=== PATIENT | male | born 1985 | race Caucasian/White ===

== ENCOUNTER 2023-06-07 05:50 | Day surgery (SDC) | payer OTHER ==
[2023-05-29 16:25] VITALS: BP 130/83
[~2023-06-07] VITALS: Ht 185.4 cm; Wt 90.9 kg
[~2023-06-07 05:50] MED LIST: PRILOSEC OTC20 MG PO; SERTRALINE HCL25 MG PO
[2023-06-07 06:11] VITALS: BP 152/85
--- NOTE | 2023-06-07 07:51 | NUR ---
PT EXPRESSED NERVOUSNESS. TALKED OF SOURCE OF ANXIETY. INDICATED IT WAS "THE WHOLE THING." EXERCISED MINISTRY OF PRESENCE. PT CONSENTED TO PRAYER. PRAYED FOR SUCCESSFUL PROCEDURE AND ABIDING PEACE.
--- NOTE | 2023-06-07 08:36 | NUR ---
06/07/23 0836 Sylwia Phoenix 0822- PT ARRIVES TO PACU SLEEPING WITH OPA IN PLACE, O2 MASK AT 6L. PT REQUIRING JAWLIFT TO ASSIST AIRWAY. ALL MONITORS APPLIED. ABD SOFT, NON DISTENDED, SMALL AMOUNT OF BLOOD ON TROCAR SITES WITH STERI STRIPS IN PLACE X 4. 0833- PT WAKES TO LOUD VERBAL STIMULUS, OPA REMOVED. PT MOVED TO ROOM AIR. PT DENIES NAUSEA OR PAIN. STATES "I'M JUST HIGH". PT ENCOURAGED TO REST AND REORIENTED TO PROCEDURE COMPLETE. NO OTHER NEEDS AT THIS TIME.
[2023-06-07] MEDS ORDERED: ACETAMINOPHEN500 MG PO (08:38)
[2023-06-07] MEDS ORDERED: IBUPROFEN600 MG PO (08:38)
[2023-06-07] MEDS ORDERED: OXYCODON-ACETA1 EAC2 PO (08:38)
[2023-06-07 08:50] VITALS: BP 135/84
--- NOTE | 2023-06-07 08:53 | NUR ---
JOSSELINE 0850: PT IS BACK TO DS FROM PACU. IS AT THE BEDSIDE. CALL LIGHT IS WITHIN REACH. CALL LIGHT WITHIN REACH. WATER AND COFFEE ON BEDSIDE TABLE. PT WOULD LIKE SOME JELLO. NO ADDITIONAL NEEDS OR CONCERNS AT THIS TIME. DC CRITERIA REVIEWED WITH PT AND .
[2023-06-07 09:55] VITALS: BP 131/80
--- NOTE | 2023-06-07 10:01 | NUR ---
PATIENT LAYING IN BED. RATES PAIN 11/14. REFILLED PATIENT'S WATER. IN ROOM. CALL LIGHT WITHIN REACH.
--- NOTE | 2023-06-07 10:38 | OR ---
[facility] [address] [place], [place] [address] Signed DATE OF OPERATION: 06/07/2023 SURGEON: Dianne Moctezuma MD PREOPERATIVE DIAGNOSIS: Chronic acalculous cholecystitis. POSTOPERATIVE DIAGNOSIS: Chronic acalculous cholecystitis. PROCEDURE: Laparoscopic cholecystectomy with intraoperative cholangiogram and surgeon-directed fluoroscopy. ANESTHESIA: General endotracheal, Dianne Rizvi CRNA and local 10 mL of 0.25% Marcaine with epinephrine. INDICATION: This 37-year-old white man is a patient of Dr. Giuseppe Norton. He has had symptoms of right subcostal and epigastric pain particularly worse following meals. Typical biliary symptoms were noted. A gallbladder ultrasound was found to have no stones. A CCK-HIDA test was found to be 88% ejection fraction (normal), but with reproduction of his symptoms. He has had no response to empiric treatment or PPI medication and has no other complaints currently. He is admitted at this time to undergo cholecystectomy on the presumption of acalculous cholecystitis, mindful of the normal studies that have thus been performed. The risk of bleeding, infection, bile duct injury and other unforeseen complications and most importantly failure to cure his symptoms was reviewed in detail. He understands and wished to proceed. FINDINGS: The gallbladder was mildly chronically inflamed. The liver was entirely normal. Once excised, the gallbladder did show adenomyosis of the mucosa. The cholangiogram was normal. Examination of the right colon and transverse colon appeared normal. The appendix was identified, although elongated, appeared normal and soft. There were no other findings of concern. DESCRIPTION OF PROCEDURE: The patient was brought to the operating room, given a general endotracheal anesthetic. Preoperative antibiotic Ancef was given. Sequential compression device stockings were Electronically Signed By: DIANNE MOCTEZUMA MD 06/07/23 1038 PATIENT NAME: LUIZA SERRANO OPERATIVE REPORT DATE OF : [birth year] REPORT #: [id number] PHYSICIAN: DIANNE MOCTEZUMA MD PCP: GIUSEPPE NORTON MD REPORT IS CONFIDENTIAL AND NOT TO BE RELEASED WITHOUT AUTHORIZATION [facility] [address] [place], [place] [address] Signed used and heparin subcutaneously administered. The abdomen was prepared with a chlorhexidine solution and draped sterilely after clipping. Infraumbilical incision was made and using an open Araceli cannula technique, the abdomen entered and pneumoperitoneum achieved to a level of 14 mmHg of carbon dioxide gas. Intra-abdominal inspection showed no sign of ascites or carcinomatosis. The gallbladder was obscured from view. The liver was normal. Three additional trocars were placed in usual configuration in the subxiphoid, right midclavicular and right anterior axillary line. The gallbladder was identified and small to moderate in size. It was elevated cephalad. Close inspection did not show any sign of neoplastic change or adhesions to it. It was retracted laterally and using blunt and electrocautery dissection, the triangle of Calot was dissected free identifying a small cystic duct. The cystic duct was clipped at the gallbladder cystic duct junction and a transverse choledochotomy was made in the cystic duct. Egress of clear bile was noted. Using an Berman type cholangiocatheter, intraoperative cholangiography was undertaken showing free flow of contrast in the biliary tree with prompt emptying into the duodenum. Morphine was administered to allow for retrograde filling of the more proximal biliary tree which was also normal. The catheter was removed and the cystic duct was triply clipped and divided. The gallbladder was then dissected free in a retrograde fashion using electrocautery. The gallbladder was extracted through the infraumbilical port site without problem, opening on the back table and found to have no sign of stones, but did show adenomyosis of the mucosa. Irrigation was undertaken in the subhepatic space. Additional cautery was applied as necessary for good hemostasis. Irrigation was undertaken. Excess irrigation fluid suctioned free. The trocars were removed under direct visualization. There was a small amount of bleeding at the inferior right-sided trocar which was secured with electrocautery. Plans were then made for closure. The infraumbilical incision was reapproximated with interrupted 0 Vicryl suture. 10 mL of 0.25% Marcaine with epinephrine was injected locally. The skin was closed with interrupted 3-0 Vicryl. Steri-Strips were applied. He was ultimately extubated and transferred to the recovery room in good condition having suffered no complication. Blood loss was less than 10 mL. Sponge, needle and instrument counts were reported as correct x3. Dianne Moctezuma MD /CUATEL /[id number] Electronically Signed By: DIANNE MOCTEZUMA MD 06/07/23 1038 PATIENT NAME: LUIZA SERRANO OPERATIVE REPORT DATE OF : [birth year] REPORT #: [id number] PHYSICIAN: DIANNE MOCTEZUMA MD PCP: GIUSEPPE NORTON MD REPORT IS CONFIDENTIAL AND NOT TO BE RELEASED WITHOUT AUTHORIZATION [facility] [address] [place], [place] [address] Signed cc: Giuseppe Norton MD Copies: GIUSEPPE NORTON MD ~ Electronically Signed By: DIANNE MOCTEZUMA MD 06/07/23 1038 PATIENT NAME: LUIZA SERRANO PERRI OPERATIVE REPORT DATE OF : [birth year] REPORT #: [id number] PHYSICIAN: DIANNE MOCTEZUMA MD PCP: GIUSEPPE NORTON MD REPORT IS CONFIDENTIAL AND NOT TO BE RELEASED WITHOUT AUTHORIZATION
--- NOTE | 2023-06-07 10:54 | NUR ---
JOSSELINE 1046: PT TURNS HIS CALL LIGHT ON. HE WOULD LIKE TO GET UP TO USE THE RESTROOM. HE IS ABLE TO AMBULATE INDEPENDENTLY WITHOUT ISSUES. HE IS ABLE TO VOID 525MLS OF DARKISH YELLOW URINE. HE AMBULATES BACK TO HIS ROOM. HE IS INDICATES THAT HE WOULD LIKE TO START GETTING READY TO GO HOME. HE IS EDUCATED ON HOW TO BEST DRESS HIMSELF AND TO OPEN HIS CURTAIN WHEN HE IS READY.
[2023-06-07 10:58] VITALS: BP 139/81
--- NOTE | 2023-06-07 11:51 | NUR ---
JOSSELINE 1055: PT AND ARE GIVEN VERBAL AND WRITTEN DC INSTRUCTIONS. THEY BOTH VERBALIZE UNDERSTANDING. QUESTIONS ARE ASKED AND ANSWERED. PT IS TAKEN TO PERSONAL VEHICLE VIA WC. HE IS ABLE TO TRANSFER HIMSELF WITHOUT ISSUES.
--- NOTE | 2023-06-11 15:14 | PATH ---
[facility] [address] [place], [place] [address] Signed SPECIMEN(S): A GALLBLADDER SPECIMEN SOURCE: A. GALLBLADDER CLINICAL HISTORY: RUQ abdominal pain, cholecystitis. FINAL PATHOLOGIC DIAGNOSIS: Gallbladder, cholecystectomy: - Benign gallbladder with mild mucosal chronic inflammation. - Negative for calculi. JVR:mfr:C2NR MICROSCOPIC EXAMINATION: Histologic sections of all submitted blocks are examined by light microscopy. These findings, together with the gross examination, support the pathologic diagnosis. GROSS DESCRIPTION: The specimen, labeled and designated "mildred Serrano," is received in formalin and consists of: Specimen: Previously opened gallbladder. Dimensions: 5.2 x 3.0 cm. Serosa: Green, smooth. Cystic Duct: Inked, unobstructed. Calculi: Calculi are not grossly identified within the container or within the gallbladder. Mucosa: Green and velvety. Wall thickness: 0.2 cm. Lymph node: No pericystic lymph nodes are grossly identified. Additional: None. Architectural Project Manager sections are submitted in (A1). JS (under the direct supervision of a pathologist) The Gross Description was prepared using a voice recognition system. The report was reviewed for accuracy; however, sound-alike word errors, addition and/or deletions may occur. If there is any question about this report, please contact Client Services. PERFORMING LABORATORY: Technical component was performed by [facility], Sun Laboy, PATIENT NAME: LUIZA SERRANO PERRI PATHOLOGY DATE OF : [birth year] REPORT #: [id number] PHYSICIAN: JAKE PATHOLOGY PCP: GIUSEPPE LAM MD REPORT IS CONFIDENTIAL AND NOT TO BE RELEASED WITHOUT AUTHORIZATION [facility] [address] [place] [address] [place] [address] (CLIA# [id number]). Professional interpretation was performed by [facility], [address] [place] [id number] (CLIA#: [id number]). Diagnostician: Brian Campos MD Pathologist Electronically Signed 06/11/2023 Copies: ~ PATIENT NAME: LUIZA SERRANO PATHOLOGY DATE OF : [birth year] REPORT #: [id number] PHYSICIAN: JAKE PATHOLOGY PCP: GIUSEPPE LAM MD REPORT IS CONFIDENTIAL AND NOT TO BE RELEASED WITHOUT AUTHORIZATION
== END 2023-06-07 11:05 | disposition home or self-care (01) ==
LOC: DS 05:50
PROVIDERS: ATTEND Surgery
PROC: 0FT44ZZ Resection of Gallbladder, Percutaneous Endoscopic Approach (ICD-10-PCS; principal; 2023-06-07 07:30)
DX: K81.1 Chronic cholecystitis (principal); K21.9 Gastro-esophageal reflux disease without esophagitis; Z79.899 Other long term (current) drug therapy
CPT/HCPCS: 00790; 74300; J0330; J0690; J1100; J1644; J1885; J2250; J2270; J2405; J2704; J2765; J3010; J7121; Q9967

== ENCOUNTER 2024-03-13 12:46 | Observation (INO) | payer OTHER ==
[2024-03-13] VITALS (8 sets, daily range): BP systolic 139–150; BP diastolic 79–92
[~2024-03-13] VITALS: Ht 185.4 cm; Wt 86.8 kg
[~2024-03-13 12:46] MED LIST changes: +ACETAMINOPHEN500 MG PO; +IBUPROFEN600 MG PO; +OXYCODON-ACETA1 EAC2 PO
[2024-03-13] MEDS ORDERED: ESCITALOPRAM OX10 MG PO (13:19)
[2024-03-13] MEDS ORDERED: CEFAZOLIN SODIUM 2 GM/20 ML SYR IV ONE ×2 (14:00→17:15)
[2024-03-13] MEDS ORDERED: SODIUM CHLORIDE 0.9% 1,000 ML IV SCH ×2 (14:00→17:30)
[2024-03-13] MEDS ORDERED: FAMOTIDINE 20 MG/ 2 ML VIAL IV ONE (14:00)
--- NOTE | 2024-03-13 14:50 | NUR ---
PT TO FLOOR FROM ER VIA AMBULATION PER PT'S REQUEST. PT TOLERATED WELL. NO PAIN OR NAUSEA AT THIS TIME. CALL LIGHT WITHIN REACH.
--- NOTE | 2024-03-13 16:30 | NUR ---
PT RESTING IN BED WITH CALL LIGHT WITHIN REACH, AT BEDSIDE. NO REQUESTS OR COMPLAINTS AT THIS TIME.
--- NOTE | 2024-03-13 17:13 | NUR ---
DR MOCTEZUMA IN TO SEE PT AND DISCUSS PLAN OF CARE. AT BEDSIDE.
[2024-03-13] MEDS ORDERED: LACTATED RINGER'S 1,000 ML IV SCH (17:15)
[2024-03-13] MEDS ORDERED: ondansetron HCL 4 MG/2 ML VIAL IV PRN ×3 (17:15→19:00)
[2024-03-13] MEDS ORDERED: MORPHINE SULFATE 10 MG/ML VIAL IV PRN (17:15)
[2024-03-13] MEDS ORDERED: HYDROmorphone HCL 1 MG/ML SYR IV PRN ×2 (17:30→19:00)
--- NOTE | 2024-03-13 17:56 | NUR ---
ANESTHESIA IN TO VISIT WITH PT.
[2024-03-13] MEDS ORDERED: DEXAMETHASONE SOD PHOS 4 MG/ML VIAL ONE (18:03)
[2024-03-13] MEDS ORDERED: ondansetron HCL 4 MG/2 ML VIAL ONE (18:03)
[2024-03-13] MEDS ORDERED: SUCCINYLCHOLINE IN 0.9% NACL 200 MG/10 ML SYRINGE ONE (18:03)
[2024-03-13] MEDS ORDERED: ACETAMINOPHEN 1,000 MG/100 ML VIAL ONE (18:03)
[2024-03-13] MEDS ORDERED: LIDOCAINE HCL 2% 5 ML SDV ONE (18:03)
[2024-03-13] MEDS ORDERED: KETOROLAC TROMETHAMINE 30 MG/ML VIAL ONE (18:03)
[2024-03-13] MEDS ORDERED: MIDAZOLAM HCL 2 MG/2 ML VIAL ONE (18:03)
[2024-03-13] MEDS ORDERED: propofoL 200 MG/20 ML VIAL ONE (18:03)
[2024-03-13] MEDS ORDERED: ROCURONIUM BROMIDE 50 MG/5 ML SYR ONE ×2 (18:03→19:14)
[2024-03-13] MEDS ORDERED: SUGAMMADEX SODIUM 200 MG/2 ML ML ONE (18:03)
[2024-03-13] MEDS ORDERED: fentaNYL citrate 100 MCG/2 ML VIAL ONE ×2 (18:04→19:51)
--- NOTE | 2024-03-13 18:05 | NUR ---
PT GOING DOWN TO SURGERY PER BED AND OR STAFF.
[2024-03-13] MEDS ORDERED: IBLOOD GLUCOSE TEST STRIP 1 EA TEST VI PRN (19:00)
[2024-03-13] MEDS ORDERED: NALOXONE HCL 0.4 MG SYR IV PRN (19:00)
[2024-03-13] MEDS ORDERED: fentaNYL citrate 50 MCG/ML SDV IV PRN (19:00)
[2024-03-13] MEDS ORDERED: droPERidol 5 MG/2 ML VIAL IV PRN (19:00)
[2024-03-13] MEDS ORDERED: PROCHLORPERAZINE EDISYLATE 10 MG/2 ML VIAL IV PRN (19:00)
[2024-03-13] MEDS ORDERED: LACTATED RINGER'S 1,000 ML IV ONE (19:37)
--- NOTE | 2024-03-13 20:21 | NUR ---
03/13/242020 Barbara Bland 2010 PT ARRIVED TO PACU ON 6L VIA MASK WITH ORAL AIRWAY IN PLACE. RESP EVEN AND UNLABORED. HOB INCREASED SLIGHTLY. PT STARTING TO SWALLOW. 2012 PT SPITTING OUT AIRWAY, ORAL AIRWAY REMOVED. PT EYES REMAIN CLOSED BUT ABLE TO FOLLOW COMMANDS TO OPEN MOUTH. 2015 PT OPENS HIS EYES AND IS REORIENTED TO PACU. PT DENIES PAIN AND O2 MASK REMOVED. PT EASILY FALLS BACK TO SLEEP WITH SMALL AMOUNT OF SNORING NOTED.
--- NOTE | 2024-03-13 20:54 | NUR ---
PATIENT RETURNED TO THE FLOOR AT 2044. REPORT RECEIVED FROM OR NURSE. PATIENT ALERT AND ORIENTED X 3. NO C/O PAIN AT THIS TIME. IV PATIENT. VSS. 3 LAP SITES WITH STERI STRIPS CDI. NO NOTED DRAINAGE AT THIS TIME. AT BEDSIDE. CALL LIGHT WITHIN REACH.
[2024-03-13] MEDS ORDERED: FAMOTIDINE 20 MG/ 2 ML VIAL IV SCH (21:00)
--- NOTE | 2024-03-13 21:45 | NUR ---
PATIENT VSS, 1 PA STAND BY ASSIST AMBULATING TO BATHROOM. NO DIFFICULTY AMBULATING TO BATHROOM, TOLLERATED WELL. VOID IN URINAL STANDING IN BATHROOM QUANITY SUFFICIENT. STERI STRIPS REMAIN INTACT, NO DRAINAGE NOTED. NO NOTED BOWEL TONES AT THIS TIME. PT. C/O ABD BLOATING AND PAIN. PRN GIVEN. DENIES ANY NAUSEA. NO FURTHER NEEDS AT THIS TIME. CALL LIGHT WITHIN REACH.
[2024-03-13] MEDS ORDERED: OXYCODONE/APAP 7.5/325 TAB PO PRN (22:30)
[2024-03-13] MEDS ORDERED: IBUPROFEN 600 MG TAB PO PRN (22:30)
[2024-03-13] MEDS ORDERED: ACETAMINOPHEN 500 MG TAB PO PRN (22:30)
--- NOTE | 2024-03-13 22:45 | NUR ---
VERIFYING MACHINE OPERATOR ENTERED ROOM AND OBTAINED VITALS PER RN REQUEST. PT STATES NO FURTHER NEEDS AT THIS TIME. CALL LIGHT PLACED WITHIN REACH.
--- NOTE | 2024-03-13 23:54 | NUR ---
PATIENT IS RESTING IN BED WATCHING TV. DENIES PAIN OR NEED FOR PRN MEDICATIONS AT THIS TIME. BOWEL TONES ACTIVE. MILD ABD DISTENTION, REPORTS PASSING SOME MORENA. DENIES ANY NAUSEA AT THIS TIME. CALL LIGHT WITHIN REACH.
--- NOTE | 2024-03-14 00:06 | NUR ---
PATIENT AMBULATED TO BATHROOM. TOLLERATED WELL. VOIDING QUANITY SUFFICIENT. BACK TO BED. nO FURTHER NEEDS AT THIS TIME. CALL LIGHT WITHIN REACH.
--- NOTE | 2024-03-14 00:26 | NUR ---
CALL LIGHT ANSWERED. PT. REQUESTING PAIN MEDICATION. PRN GIVEN SEE MAR. NO FURTHER NEEDS AT THIS TIME. CALL LIGHT WITHIN REACH.
[2024-03-14 03:29] VITALS: BP 132/85
[2024-03-14 03:35] VITALS: BP 132/85
--- NOTE | 2024-03-14 03:39 | NUR ---
VSS, PATIENT C/O MILD ABD PAIN. PRN GIVEN SEE MAR. PATIENT REPORTS PASSING GAS. DENIES ANY NAUSEA. STERI STRIPS REMAIN CDI. BOWEL TONES ACTIVE X 4 QUADRANTS. NO FURTHER NEEDS AT THIS TIME. CALL LIGHT WITHIN REACH.
--- NOTE | 2024-03-14 04:48 | NUR ---
CALL LIGHT ANSWERED. PT REQUEST AN IPHONE CRIMINAL INTELLIGENCE ANALYST AND ICE WATER. CHANNEL MANAGER BROUGHT WHAT PT REQUESTED, PLUGGED IN PHONE. PT STATES NO FURTHER NEEDS AT THIS TIME. CALL LIGHT PLACED WITHIN REACH.
--- NOTE | 2024-03-14 05:47 | NUR ---
PATIENT AWAKE IN BED WATCHING TV. URINAL EMPTIED. CALL LIGHT WITHIN REACH.
--- NOTE | 2024-03-14 06:37 | NUR ---
PATIENT REQUESTING PAIN MEDICATION. PRN GIVEN SEE MAR. NO FURTHER NEEDS AT THIS TIME. CALL LIGHT WITHIN REACH.
--- NOTE | 2024-03-14 08:25 | NUR ---
VISITED DURING SPIRITUAL CARE ROUNDS. PT DISPLAYED POSITIVE ATTITUDE, ANTICIPATION OF HOPED-FOR DISCHARGE; DECLINED REVENUE STAMPER VISIT. PROVIDED HOSPITALITY, SUPPORTIVE PRESENCE, PRAYER. PT EXPRESSED GRATITUDE.
[2024-03-14] MEDS ORDERED: METAMUCIL660 GM PO (08:38)
--- NOTE | 2024-03-14 08:38 | NUR ---
MED REC COMPLETE
[2024-03-14] MEDS ORDERED: FAMOTIDINE 20 MG TAB PO SCH (09:00)
--- NOTE | 2024-03-14 09:02 | NUR ---
Patient awake in bed, alert and oriented x4. Patient reports his pain is tolerable at this time. Bowel tones active x4 quadrants, pt denies nausea. Abdominal lap sites x3 noted, dressings CDI. Patient reports he is feeling well this morning, he is hopeful to discharge home as soon as possible per his report. No current needs, personal supplies and call light within reach.
[2024-03-14 09:48] VITALS: BP 136/84
--- NOTE | 2024-03-14 11:24 | NUR ---
mOTRIN 600MG PO admin for reports of 6/10 abdominal pain. Patient encouarged to continue ambulating intermittently. Patient has no further needs, call light within reach.
[2024-03-14] MEDS ORDERED: OXYCODON-ACETA1 EAC2 PO (11:47)
[2024-03-14] MEDS ORDERED: IBUPROFEN600 MG PO (11:47)
[2024-03-14] MEDS ORDERED: ACETAMINOPHEN500 MG PO (11:47)
--- NOTE | 2024-03-14 12:37 | NUR ---
Admin two tabs percocet 7.5/325 po for reports of 6/10 abdominal pain.
--- NOTE | 2024-03-15 10:52 | HP ---
[facility] [address] [place], [place] [address] Signed ADMISSION DATE: 03/13/2024 REASON FOR ADMISSION: Probable appendicitis. HISTORY OF PRESENT ILLNESS: This 38-year-old white man is known to me from the past having undergone cholecystectomy in 2021. He has had a few days of increasing central abdominal pain, now migrated to the right lower abdomen. An outpatient CT scan was performed (CT angio) showing uncomplicated appendicitis. He was directed to the emergency room after that outpatient CT scan was performed for further evaluation and management. The patient last ate last night. He has had no protracted nausea or vomiting. Does have a general abdominal pain most prominent in the right lower quadrant. The patient has had a cholecystectomy as well as a soft tissue mass excision of the left armpit. He does use marijuana occasionally. Does not smoke otherwise. MEDICINES: At admission include ibuprofen, oxycodone, and Tylenol. He has also taken as escitalopram as well as omeprazole. SOCIAL HISTORY: He is . He is accompanied by his at this time. His primary provider is Dr. Rosalind Bauer. 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 REVIEW OF SYSTEMS: He denies any shortness of breath or chest pain. He has had no hematemesis or blood per rectum. Denies dysphagia. PHYSICAL EXAMINATION: GENERAL: A pleasant well-developed, well-nourished white man. He is with BMI of 25.2. Height is 6 feet 1 inch, weight is 88.77 kg. HEENT: Trachea is midline. Mucous membranes are reasonably moist. CHEST: Clear. Electronically Signed By: DIANNE MOCTEZUMA MD 03/15/24 1052 PATIENT NAME: LUIZA SERRANO HISTORY AND PHYSICAL DATE OF : [birth year] REPORT #: [id number] PHYSICIAN: DIANNE MOCTEZUMA MD PCP: ROSALIND BAUER MD REPORT IS CONFIDENTIAL AND NOT TO BE RELEASED WITHOUT AUTHORIZATION [facility] [address] [place], [place] [address] Signed HEART: Regular without murmur. ABDOMEN: Scaphoid and nondistended. Rovsing sign is equivocal. He does have tenderness in McBurney point. EXTREMITIES: Show no clubbing, cyanosis, or edema. LABORATORY STUDIES: Show a white count 6.7, hematocrit 44.1, platelets 279,000. Chem profile is essentially normal. Globulin is 4.1. I reviewed the CT scan in detail as well as its interpretation. His clinical history is highly consistent with acute appendicitis and he does have some tenderness, though not as much as I expected. CT scan is notable for probable appendicitis. I have discussed with him the pathophysiology of this problem with the use of the white board and illustrations and recommendation of treatment to include appendectomy preferred by laparoscopic approach. The risk of bleeding, infection, recurrent pain, need for open procedure should abscess be found, and so forth were all reviewed in detail. He understands and wishes to proceed as I have recommended. PLAN: He will have continued use of antibiotics Flagyl and Ancef, which was prescribed through the emergency room and anticipated operation this evening. The risks of bleeding, infection, failure of diagnosis, misdiagnosis, need for open procedure and so forth were all reviewed with him. He understands and wished to proceed. Dianne Moctezuma MD JM/MODL /[id number] cc: Pierre Tineo MD [place]tt HONG Bauer MD Electronically Signed By: DIANNE MOCTEZUMA MD 03/15/24 1052 PATIENT NAME: LUIZA SERRANO HISTORY AND PHYSICAL DATE OF : [birth year] REPORT #: [id number] PHYSICIAN: DIANNE MOCTEZUMA MD PCP: ROSALIND BAUER MD REPORT IS CONFIDENTIAL AND NOT TO BE RELEASED WITHOUT AUTHORIZATION [facility] [address] [place], [place] [address] Signed Copies: ~ Electronically Signed By: DIANNE MOCTEZUMA MD 03/15/24 1052 PATIENT NAME: LUIZA SERRANO HISTORY AND PHYSICAL DATE OF : [birth year] REPORT #: [id number] PHYSICIAN: DIANNE MOCTEZUMA MD PCP: ROSALIND BAUER MD REPORT IS CONFIDENTIAL AND NOT TO BE RELEASED WITHOUT AUTHORIZATION
--- NOTE | 2024-03-15 10:52 | OR ---
[facility] [address] [place], [place] [address] Signed DATE OF OPERATION: 03/13/2024 SURGEON: Dianne Moctezuma MD PREOPERATIVE DIAGNOSIS: Acute appendicitis. POSTOPERATIVE DIAGNOSIS: Acute appendicitis. PROCEDURE: Laparoscopic appendectomy. ANESTHESIA: General endotracheal, Piotr Campos, BOILERMAKER [employer]UST[employer]ILERS and local 10 mL of 0.25% Marcaine with epinephrine. INDICATIONS: This 38-year-old white man is a patient of Dr. Rosalind Bauer and most recently JOHANNE Ch. He has had three days of increasing abdominal pain now in the right lower abdomen. A CT scan was performed under the direction of JOHANNE Ch, which confirmed findings consistent with appendicitis. He was referred to the emergency room and evaluated further by Dr. Pierre Deshpande confirming findings of acute appendicitis. He has been fluid resuscitated, given intravenous antibiotic Ancef and Flagyl and now to undergo appendectomy. He understands the risk of bleeding, infection, need for open procedure and other unforeseen complications and wished to proceed. FINDINGS: Acute appendicitis was noted. There was elongated mesentery and appendix. It was resected without problem. . The liver appeared normal. There was surgical absence of the gallbladder. DESCRIPTION OF PROCEDURE: The patient was brought to the operating room, given a general endotracheal anesthetic. Preoperative antibiotics had been given. Sequential compression stockings were used and heparin subcutaneously administered. The abdomen was clipped and prepared with a chlorhexidine solution and draped sterilely. An infraumbilical incision was made in the previous incision. The fascia was noted to be intact without sign of herniation. The abdomen was entered without problem. Then, using an open Araceli cannula technique, pneumoperitoneum was achieved to a level of 14 mmHg of carbon dioxide gas. Electronically Signed By: DIANNE MOCTEZUMA MD 03/15/24 1052 PATIENT NAME: LUIZA SERRANO OPERATIVE REPORT DATE OF : [birth year] REPORT #: [id number] PHYSICIAN: DIANNE MOCTEZUMA MD PCP: ROSALIND BAUER MD REPORT IS CONFIDENTIAL AND NOT TO BE RELEASED WITHOUT AUTHORIZATION [facility] [address] [place], [place] [address] Signed Intra-abdominal inspection showed a single adhesion in the right mid abdomen to the abdominal wall. This was subsequently taken down with electrocautery. A 12 mm epigastric port was placed and a camera placed to that site. Using single hand manipulation of the terminal ileum, as identified by the antimesenteric fat pad of Trelottie, the cecum was identified, ultimately identifying the appendix, which was inflamed, but without sign of perforation or gangrene. The right lower quadrant 5 mm port was placed and two hand manipulation allowed for isolation of the appendix. The appendix was relatively long, extending posteriorly and with a rather lengthy mesoappendix. A window was created between the appendix and the cecum using electrocautery and blunt dissection and an Endo NEFTALI stapling device was used to transect the base of the appendix flush with the cecum. Further dissection of the mesoappendix with electrocautery was undertaken ultimately allowing for application of an Endo NEFTALI stapling device with a vascular load. Two such loads were required for complete transection of the mesoappendix. A small vessel within the staple line was bleeding and was secured with electrocautery. The appendix was withdrawn into the infraumbilical port and extracted and offloaded and photographs taken. Irrigation was undertaken in the right lower abdomen. There was no sign of ongoing bleeding. The staple lines were secure. The excess irrigation fluid was suctioned free. The trocars were removed under direct visualization showing no sign of bleeding. The infraumbilical fascial incision was reapproximated with interrupted 0 Vicryl suture. 10 mL of 0.25% Marcaine with epinephrine was injected and skin closed with interrupted 3-0 Vicryl. Steri-Strips were applied. The patient was ultimately extubated and transferred to recovery room in good condition, having suffered no complications. Sponge, needle, and instrument counts reported as correct x3. Dianne Moctezuma MD /MODL /[id number] cc: MD Pierre Lay MD Electronically Signed By: DIANNE MOCTEZUMA MD 03/15/24 1052 PATIENT NAME: LUIZA SERRANO OPERATIVE REPORT DATE OF : [birth year] REPORT #: [id number] PHYSICIAN: DIANNE MOCTEZUMA MD PCP: ROSALIND BAUER MD REPORT IS CONFIDENTIAL AND NOT TO BE RELEASED WITHOUT AUTHORIZATION [address] [address] Signed JOHANNE Ch Copies: PIERRE DESHPANDE MD ~ Electronically Signed By: DIANNE MOCTEZUMA MD 03/15/24 1052 PATIENT NAME: MAGGIELUIZA OPERATIVE REPORT DATE OF : [birth year] REPORT #: [id number] PHYSICIAN: DIANNE MOCTEZUMA MD PCP: ROSALIND BAUER MD REPORT IS CONFIDENTIAL AND NOT TO BE RELEASED WITHOUT AUTHORIZATION
--- NOTE | 2024-03-18 17:33 | PATH ---
[facility] [address], [place] [address] Signed SPECIMEN(S): A APPENDIX SPECIMEN SOURCE: A. APPENDIX CLINICAL HISTORY: Acute appendicitis FINAL PATHOLOGIC DIAGNOSIS: Appendix, appendectomy: - Acute appendicitis with periappendicitis. - Extensive mucosal necrosis. JVR:jesus MICROSCOPIC EXAMINATION: Histologic sections of all submitted blocks are examined by light microscopy. These findings, together with the gross examination, support the pathologic diagnosis. GROSS DESCRIPTION: The specimen, labeled and designated "fausto Serrano," is received in formalin and consists of: Specimen: Appendix with mesoappendix. Dimensions: 6.5 x 0.9 cm. Serosa: Violaceous, focally congested and cloudy. Defect: Not grossly identified. Inking: Staple line is inked black. Mucosa: [place]-jacobs red. Fecalith: Not grossly identified. Additional: None. [employer] sections are submitted in (A1). JS (under the direct supervision of a pathologist) The Gross Description was prepared using a voice recognition system. The report was reviewed for accuracy; however, sound-alike word errors, addition and/or deletions may occur. If there is any question about this report, please contact Client Services. PERFORMING LABORATORY: Technical component was performed by [facility], [address] [place] [id number] (CLIA# [id number]). Professional interpretation was performed by [facility] - [place], [address] PATIENT NAME: LUIZA SERRANO PERRI PATHOLOGY DATE OF : 85 REPORT #: [id number] PHYSICIAN: JAKE PATHOLOGY PCP: ALEC BAUER MD REPORT IS CONFIDENTIAL AND NOT TO BE RELEASED WITHOUT AUTHORIZATION [address] [place] [address] [address], [place] [address] (CLIA#: [id number]). Diagnostician: Brian Campos MD Pathologist Electronically Signed 03/18/2024 Copies: ~ PATIENT NAME: LUIZA SERRANO PATHOLOGY DATE OF : 85 REPORT #: [id number] PHYSICIAN: JAKE PATHOLOGY PCP: ALEC BAUER MD REPORT IS CONFIDENTIAL AND NOT TO BE RELEASED WITHOUT AUTHORIZATION
== END 2024-03-14 12:39 | disposition home or self-care (01) ==
LOC: ED 12:46 → MS 12:47
PROVIDERS: ADMIT Surgery; ATTEND Surgery
PROC: 0DTJ4ZZ Resection of Appendix, Percutaneous Endoscopic Approach (ICD-10-PCS; principal; 2024-03-13 15:00)
DX: K35.891 Other acute appendicitis without perforation, with gangrene (principal); Z79.899 Other long term (current) drug therapy
CPT/HCPCS: 00840; A9270; J0131; J0330; J0690; J1100; J1885; J2001; J2250; J2270; J2405; J2704; J3010; J3490; J7030; J7121